=== PATIENT | male | born 1965 | race Caucasian/White ===

== ENCOUNTER 2020-02-01 11:44 | Inpatient (IN) ==
[2020-02-01] MEDS ORDERED: Ondansetron 4 MG/2 ML VIAL IVP PRN (12:09)
[2020-02-01] MEDS ORDERED: Haloperidol Oral Conc 10 MG/5 ML UDC PO PRN (12:09)
[2020-02-01] MEDS ORDERED: Bisacodyl 10 MG RECTAL SUPPOSITORY RC PRN (12:09)
[2020-02-01] MEDS ORDERED: *HR* HYDROmorphone (PF) 1 MG/ML SYRINGE IVP PRN (12:09)
[2020-02-01] MEDS ORDERED: *HR* LORazepam 1 MG TABLET PO PRN (12:09)
[2020-02-01] MEDS: Morphine Sulfate Oral CONC 10 MG/0.5 ML ORAL.SYG PO PRN ×2 (15:18→22:57)
[2020-02-01] MEDS: *HR* LORazepam 2 MG/ML VIAL IVP PRN ×6 (16:39→22:57)
[2020-02-01] MEDS: Haloperidol Lactate 5 MG/ML VIAL IVP PRN ×2 (16:40→20:40)
[2020-02-01] MEDS: *HR* FentaNYL (PF) 100 MCG/2 ML VIAL IVP PRN ×3 (17:51→21:44)
[2020-02-01] MEDS: FentaNYL (PF) 1,000 MCG/100 ML IV.SOLN IVC SCH (23:26)
[2020-02-02] MEDS: *HR* LORazepam 2 MG/ML VIAL IVP PRN ×3 (00:11→20:25)
[2020-02-02] MEDS: Haloperidol Lactate 5 MG/ML VIAL IVP PRN (04:22)
[2020-02-02] MEDS: FentaNYL (PF) 1,000 MCG/100 ML IV.SOLN IVC SCH ×2 (11:08→20:35)
[2020-02-02] MEDS: Morphine Sulfate Oral CONC 10 MG/0.5 ML ORAL.SYG PO PRN (20:25)
[2020-02-03] MEDS: Atropine Sulfate 1% 40 DROP/2 ML BOTTLE SL PRN ×2 (00:06→08:11)
[2020-02-03] MEDS: *HR* LORazepam 2 MG/ML VIAL IVP PRN ×3 (00:37→16:55)
[2020-02-03] MEDS: FentaNYL (PF) 1,000 MCG/100 ML IV.SOLN IVC SCH ×2 (05:39→14:38)
[2020-02-03 07:47] VITALS: BP 77/47
[2020-02-03] MEDS ORDERED: Scopolamine Patch 1.5 MG PATCH.TD72 TD SCH (11:30)
[2020-02-03] MEDS ORDERED: Acetaminophen 650 MG RECTAL SUPP RC PRN (14:21)
== END 2020-02-03 17:24 | disposition expired | DRG 951 ==
LOC: 2ANU 14:21
PROVIDERS: ADMIT Internal Medicine Hospice and Palliative Medicine; ATTEND Internal Medicine Hospice and Palliative Medicine